=== PATIENT | female | born 1950 | race Caucasian/White ===

== ENCOUNTER 2017-11-12 15:31 | Outpatient (CLI) ==
[2017-11-12] MEDS ORDERED: VANCOMYCIN 1 GM in SODIUM CHLORIDE 250 ML IV ONE (16:00)
[2017-11-12 16:08] VITALS: BP 122/64; TEMP 98
== END 2017-11-12 15:32 | disposition home or self-care (01) ==
LOC: OPMED 15:31
PROVIDERS: ATTEND General Practice
DX: L03.032 Cellulitis of left toe (principal); L03.91 Acute lymphangitis, unspecified; E11.621 Type 2 diabetes mellitus with foot ulcer; L97.429 Non-pressure chronic ulcer of left heel and midfoot with unspecified severity
CPT/HCPCS: 36415; 80053; 83036; 87070; 87186

== ENCOUNTER 2017-11-13 16:42 | Outpatient (CLI) ==
[2017-11-13] MEDS ORDERED: VANCOMYCIN 1 GM in SODIUM CHLORIDE 250 ML IV STA (16:59)
[2017-11-13 17:06] VITALS: BP 131/67; TEMP 98.3
== END 2017-11-13 16:43 | disposition home or self-care (01) ==
LOC: OPMED 16:42
PROVIDERS: ATTEND General Practice
DX: L03.116 Cellulitis of left lower limb (principal); I89.1 Lymphangitis; L97.429 Non-pressure chronic ulcer of left heel and midfoot with unspecified severity
CPT/HCPCS: 96365

== ENCOUNTER 2017-11-14 16:34 | Outpatient (CLI) ==
[2017-11-14] MEDS ORDERED: VANCOMYCIN 1 GM in SODIUM CHLORIDE 250 ML IV STA (16:48)
[2017-11-14 16:57] VITALS: BP 136/63; TEMP 98.2
== END 2017-11-14 16:35 | disposition home or self-care (01) ==
LOC: OPMED 16:34
PROVIDERS: ATTEND General Practice
DX: L03.116 Cellulitis of left lower limb (principal); I89.1 Lymphangitis; L97.429 Non-pressure chronic ulcer of left heel and midfoot with unspecified severity
CPT/HCPCS: 96365

== ENCOUNTER 2017-11-19 08:11 | Outpatient (CLI) | END 2017-11-19 08:12 | disposition home or self-care (01) | LOC: LAB 08:11 | PROVIDERS: ATTEND General Practice | DX: R94.4 Abnormal results of kidney function studies (principal) | CPT/HCPCS: 36415; 80069 ==

== ENCOUNTER 2017-11-24 07:53 | Outpatient (CLI) ==
--- NOTE | 2017-11-24 10:51 | DI ---
EXAM: Three views of the left foot. History: Left foot pain and ulcer. Findings: No acute fracture or dislocation. Mild polyarticular joint space narrowing. No cortical d estruction identified to suggest osteomyelitis. Tiny plantar spur. No abnormal calcifications or ra diopaque foreign bodies. Impression: No acute osseous abnormality.
== END 2017-11-24 07:54 | disposition home or self-care (01) ==
LOC: WOUND 07:53 → EDSTATUS 09:52
PROVIDERS: ATTEND Nurse Practitioner Family
DX: E11.621 Type 2 diabetes mellitus with foot ulcer (principal); L97.522 Non-pressure chronic ulcer of other part of left foot with fat layer exposed; I10 Essential (primary) hypertension
CPT/HCPCS: 11042; 87070; 99202

== ENCOUNTER 2017-12-01 08:43 | Outpatient (CLI) | END 2017-12-01 08:44 | disposition home or self-care (01) | LOC: WOUND 08:43 | PROVIDERS: ATTEND Nurse Practitioner Family | DX: E11.621 Type 2 diabetes mellitus with foot ulcer (principal); L97.522 Non-pressure chronic ulcer of other part of left foot with fat layer exposed; I10 Essential (primary) hypertension ==

== ENCOUNTER 2017-12-08 08:37 | Outpatient (CLI) | END 2017-12-08 08:38 | disposition home or self-care (01) | LOC: WOUND 08:37 | PROVIDERS: ATTEND Nurse Practitioner Family | DX: E11.621 Type 2 diabetes mellitus with foot ulcer (principal); L97.522 Non-pressure chronic ulcer of other part of left foot with fat layer exposed; I10 Essential (primary) hypertension ==

== ENCOUNTER 2018-01-11 14:00 | Outpatient (CLI) | END 2018-01-11 14:01 | disposition home or self-care (01) | LOC: LAB 14:00 | PROVIDERS: ATTEND Internal Medicine | DX: E87.5 Hyperkalemia (principal) | CPT/HCPCS: 36415; 80053 ==